=== PATIENT | male | born 1975 | race Caucasian/White ===

== ENCOUNTER 2021-12-28 09:43 | Emergency (ER) | payer BC ==
[2021-12-28] MEDS ORDERED: methylPREDNISolone Sodium Succinate 125 MG/2 ML SDV IVPUSH PRN (11:15)
[2021-12-28] MEDS ORDERED: Acetaminophen 325 MG Tab PO PRN (11:15)
[2021-12-28] MEDS ORDERED: diphenhydrAMINE 50 MG/ML SDV IVPUSH PRN (11:15)
[2021-12-28] MEDS ORDERED: Famotidine 20 MG/2 ML SDV IV PRN (11:15)
[2021-12-28] MEDS ORDERED: EPINEPHrine 1 MG/ML SDV IM PRN (11:15)
== END 2021-12-28 13:06 | disposition home or self-care (01) ==
LOC: JP.ED 09:43
DX: U07.1 COVID-19 (principal); E11.9 Type 2 diabetes mellitus without complications; Z79.84 Long term (current) use of oral hypoglycemic drugs
CPT/HCPCS: 99283; 99284; M0247; Q0247

== ENCOUNTER 2023-02-19 10:06 | Emergency (ER) | payer BC, OTHER ==
[2023-02-19] MEDS ORDERED: Ketorolac 30 MG/ML SDV IM ONE (10:58)
== END 2023-02-19 13:26 | disposition home or self-care (01) ==
LOC: JP.ED 10:06
DX: R07.81 Pleurodynia (principal); E11.9 Type 2 diabetes mellitus without complications; Z79.84 Long term (current) use of oral hypoglycemic drugs; W01.0XXA Fall on same level from slipping, tripping and stumbling without subsequent striking against object, initial encounter
CPT/HCPCS: 71046; 96372; 99283; J1885

== ENCOUNTER 2023-12-23 09:39 | Emergency (ER) | payer OTHER ==
[2023-12-23 12:04] LABS: BASOPHILS ABSOLUTE AUTO 0.11 K/uL (0.00-0.10); BASOPHILS PERCENT AUTO 1.2 % (0.1-1.3); EOSINOPHILS ABSOLUTE AUTO 0.16 K/uL (0.00-0.40); EOSINOPHILS PERCENT AUTO 1.8 % (0.0-5.4); HEMATOCRIT 46.5 % (38.4-49.7); HEMOGLOBIN 15.8 g/dL (12.9-16.9); LYMPHOCYTES ABSOLUTE AUTO 3.66 K/uL (0.8-3.3); LYMPHOCYTES PERCENT AUTO 40.8 % (11.4-47.7); MEAN CORPUSCULAR HEMOGLOBIN 31.6 pg (31.6-35.5); MONOCYTES ABSOLUTE AUTO 0.68 K/uL (0.20-0.90); MONOCYTES PERCENT AUTO 7.6 % (3.3-12.6); NEUTROPHILS ABSOLUTE AUTO 4.34 K/uL (1.0-7.6); NEUTROPHILS PERCENT AUTO 48.5 % (40.0-78.1); PLATELET COUNT,PLT 333 K/uL (130-375)
[2023-12-23] MEDS: Iopamidol 755 Mg/ML 100 ML Bottle IV SCH (12:08)
[2023-12-23] MEDS: Sodium Chloride 0.9% 10 ML Syringe FLUSH PRN (12:08)
[2023-12-23] MEDS: Sodium Chloride 0.9% 100 ML IV SCH (12:08)
[2023-12-23 12:15] LABS: PROTHROMBIN TIME 10.5 sec (9.2-10.6); PTT,PARTIAL THROMBOPLSTIN TIME 27.7 sec (21.8-27.3)
[2023-12-23 12:17] LABS: ALANINE AMINOTRANSFERASE,ALT 76 U/L (12-78); ALBUMIN 3.9 g/dL (3.4-5.0); ALKALINE PHOSPHATASE 125 U/L (46-116); ASPARTATE AMNIOTRANSFERASE,AST 30 U/L (15-37); BILIRUBIN TOTAL 0.2 mg/dL (0.2-1.0); BLOOD UREA NITROGEN,BUN 12 mg/dL (7-18); CALCIUM 8.7 mg/dL (8.5-10.1); CARBON DIOXIDE,CO2 31 mmol/L (21-32); CHLORIDE,CL 102 mmol/L (100-108); CREATININE 0.8 mg/dL (0.8-1.3); EST CRCL DRUG DOSING (CG) 135.63 mL/min; ESTIMATED GFR 108 mL/min (>60); GLUCOSE RANDOM 116 mg/dL (74-106); POTASSIUM,K 4.4 mmol/L (3.6-5.2); PROTEIN TOTAL,TP 7.7 g/dL (6.4-8.2); SODIUM,NA 139 mmol/L (140-148); TROPONIN I HIGH SENSITIVITY 6.2 pg/mL (<=60.3)
[2023-12-23 12:23] LABS: ANION GAP 10.4 mmol/L (5.0-14.0)
[2023-12-23] MEDS: Sodium Chloride 0.9% 10 ML Syringe FLUSH ONE (14:25)
== END 2023-12-23 14:15 | disposition home or self-care (01) ==
LOC: JP.ED 09:39
DX: R26.2 Difficulty in walking, not elsewhere classified (principal); F81.9 Developmental disorder of scholastic skills, unspecified; E11.9 Type 2 diabetes mellitus without complications; F17.210 Nicotine dependence, cigarettes, uncomplicated; Z79.899 Other long term (current) drug therapy; Z79.84 Long term (current) use of oral hypoglycemic drugs; Z79.01 Long term (current) use of anticoagulants
CPT/HCPCS: 36415; 70450; 70496; 70498; 80053; 82947; 84484; 85025; 85610; 85730; 93005; 99284; J3490; Q9967